=== PATIENT | female | born 1975 | race Caucasian/White ===

== ENCOUNTER 2016-10-09 18:59 | Emergency (ER) | payer BC ==
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
[2016-10-09] MEDS ORDERED: Diph,Pert(Acell),Tet Vac 0.5 ML SYR IM ONE (19:20)
[2016-10-09] MEDS ORDERED: HYDROCODONE/APAP 5/325MG TABLET PO ONE (19:20)
[2016-10-09] MEDS ORDERED: SILVER SULFADIAZINE 25 GM CREAM TOP ONE (19:26)
== END 2016-10-09 19:41 | disposition home or self-care (01) ==
LOC: ER 18:59
DX: T22.212A Burn of second degree of left forearm, initial encounter (principal); X12.XXXA Contact with other hot fluids, initial encounter; Y93.G3 Activity, cooking and baking
CPT/HCPCS: 90715; 96372; 99283